=== PATIENT | male | born 1955 | race Caucasian/White ===

== ENCOUNTER 2024-11-06 17:14 | Observation (INO) ==
[2024-11-06] MEDS: OPTIRAY 320 125ml IV ONE (17:49)
[2024-11-06 17:54] LABS: Base Excess VBG 6.5 mEq/L; HCO3 VBG 32 mmol/L; Oxygen Saturation VBG 74.2 %; PCO2 VBG 47 mmHg (38-50); PO2 VBG 40 mmHg; pH VBG 7.44 (7.36-7.41)
[2024-11-06 17:56] LABS: Hematocrit (blood only) 43.7 % (42.0-52.0); Hemoglobin 15.5 g/dl (14.0-18.0); Immature Granulocytes # (auto) 0.02 K/uL (0.01-0.20); Immature Granulocytes % (auto) 0.3 %; Mean Corpuscular Hemoglobin 29.0 pg (25.0-34.0); Mean Corpuscular Volume 81.8 fL (80.0-100.0); Platelet Count 145 K/uL (130-400); RDW Standard Deviation 37.0 fL (36.4-46.3); Red Blood Count 5.34 M/uL (4.70-6.10); White Blood Count 7.11 K/ul (4.8-10.8)
[2024-11-06 18:13] LABS: Alanine Aminotransferase 13.0 U/L (7-52); Albumin Globulin Ratio 1.7 (0.9-2); Alkaline Phosphatase 42.0 U/L (34-104); Anion Gap 7.0 (3-11); Bilirubin,Total 0.5 mg/dl (0.2-1.0); Blood Urea Nitrogen 15.0 mg/dl (6-23); Calcium 8.8 mg/dl (8.6-10.3); Carbon Dioxide 31.0 mmol/L (21-32); Chloride 99.0 mmol/L (98-107); Creatinine Clr Calc Pharmacy 69.9 ml/min; Globulin 2.4 gm/dl (2.5-4.0); Glucose 133.0 mg/dl (70-99(Fasting)); Magnesium 2.0 mg/dl (1.7-2.4); Potassium 2.8 mmol/L (3.5-5.1); Sodium 137.0 mmol/L (136-145); Total Protein 6.5 gm/dl (6.0-8.3)
--- NOTE | 2024-11-06 18:15 | CT Scan Report ---
EXAMINATION: Head CT without CLINICAL HISTORY: TIA symptom PRIORS: None TECHNIQUE: Contiguous axial images were obtained through the head without the use of intravenous contrast. Sagittal and coronal reformations are supplied. FINDINGS: Mild diffuse parenchymal volume loss noted. Mcrae-white differentiation is preserved. No edema or midline shift. Physiologic calcifications of the basal ganglia noted. Scattered periventricular lucency present in the deep white matter likely representing small vessel occlusive disease. No intra-axial or extra-axial hemorrhage. Ventricles are normal in size and configuration. Brainstem and cerebellum have a normal appearance. Calvarium unremarkable. Paranasal sinuses and mastoid air cells are well-pneumatized. Globes are intact. No retrobulbar abnormality. IMPRESSION: No CT evidence of an acute intracranial abnormality. If clinical concern warrants, brain MRI could be obtained. Electronically signed by Elizabeth Churchill 11-06-2024 6:14 PM
--- NOTE | 2024-11-06 18:17 | CT Scan Report ---
EXAM: CTA head with CLINICAL HISTORY: TIA symptoms TECHNIQUE: Contiguous CTA axial images were obtained through the head after the administration of intravenous contrast. Sagittal and coronal reformations are supplied. PRIORS: None FINDINGS: The vertebral arteries form the basilar artery at the skull base. Left distal vertebral artery extremely diminutive in size at the level of the brainstem. [place] is patent. No thrombus or hemodynamically significant stenosis. No aneurysmal dilatation or shin aneurysm. No enhancing mass in the brain. IMPRESSION: No CTA evidence of an acute vascular abnormality. Electronically signed by Elizabeth Churchill 11-06-2024 6:14 PM
--- NOTE | 2024-11-06 18:17 | CT Scan Report ---
EXAM: CT angio neck with con CLINICAL HISTORY: TIA-like symptoms TECHNIQUE: Contiguous CTA axial images were obtained through the neck with the administration of intravenous contrast. Sagittal and coronal reformations are supplied. MIPS are supplied. COMPARISON: None FINDINGS: Left-sided aortic arch is identified with mild atherosclerotic disease. Appropriate takeoff of the 3 great vessels noted. The common, internal and external carotid arteries are patent with no significant atherosclerotic disease, hemodynamically significant stenosis, thrombus or evidence of dissection. The distal internal carotid arteries enter the petrous portion of the skull base normally. The vertebral arteries are patent with the right vertebral artery dominant. Both performed the basilar artery at the skull base. Internal carotid arteries are patent in the cavernous sinus with mild atherosclerotic disease identified. IMPRESSION: No CTA evidence of an acute abnormality or hemodynamically significant stenosis Electronically signed by Elizabeth Churchill 11-06-2024 6:17 PM
[2024-11-06 18:25] LABS: INR 1.0 (0.9-1.1); Partial Thromboplastin Time 27 Seconds (21-31); Prothrombin Time 10.9 Seconds (9.0-12.0)
[2024-11-06] MEDS: ASPIRIN 81 MG CHEW PO STA (18:39)
[2024-11-06] MEDS: POTASSIUM CHLORIDE 10 MEQ TABCR PO STA (18:41)
--- NOTE | 2024-11-06 19:06 | XRay Report ---
Chest radiograph, one view History: Stroke alert Comparison: None Findings: Single AP view of the chest performed. No focal consolidation or pleural effusion. No pneumothorax. The cardiomediastinal silhouette is within normal limits. Normal pulmonary vascularity. No evidence for lymphadenopathy. No visualized bony or soft tissue abnormality. Impression: Normal chest radiograph Electronically signed by Bigg Hodgson 11-06-2024 7:06 PM
--- NOTE | 2024-11-06 19:57 | Emergency Department Note ---
History of Present Illness General Chief complaint: TIA Symptoms Stated complaint: STROKE SYMTOMS Time Seen by Provider: 11/06/24 17:23 History of Present Illness Provider complaint: Headache strokelike symptoms 69-year-old male presents emergency department for headache and strokelike symptoms. Patient was driving and at 1330 developed a headache. At 1630 he developed expressive aphasia and dysarthria. Patient states his symptoms resolved 15 minutes later. Patient reports no current headache. No difficulty speaking right now. No numbness. No falls or traumas. No blood thinners. Home Medications Medication Instructions Recorded Confirmed Type hydrochlorothiazide 25 mg tablet 25 mg PO QAM 06/30/19 11/06/24 History simvastatin 20 mg tablet 20 mg PO HS 06/30/19 11/06/24 History amlodipine 5 mg tablet 5 mg PO QAM 11/06/24 11/06/24 History Allergies Allergy/AdvReac Type Severity Reaction Status Date / Time No Known Allergies Allergy Verified 11/06/24 18:30 Past Med/Surg History Problem List (Updated 11/06/24 @ 20:57 by Dario Farley MD) Brain TIA (Acute) Encounter for pre-operative examination Scrotal lesion Medical History Colon polyp Hyperlipidemia Hypertension Surgical History History of colonoscopy S/P vasectomy S/P cholecystectomy Family History Mother Diabetes Other No family history of adverse response to anesthesia Social History Smoking Status: Never smoker Second Hand Exposure: Yes (as a child); Do You Dip or Chew Tobacco: No; Hx Alcohol Use: No Hx Substance Use: No Preferred Language: Sinhala Communication Ability: Effective 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 Beliefs That Will Affect Care: None marital status: Current Living Situation: Spouse current occupational status: retired Feels Safe at Home: Yes Assistive Devices: Denture - Upper and Glasses Physical Exam Vital Signs Vital Signs - 24 hr 11/06/24 17:02 11/06/24 17:44 11/06/24 18:00 Temperature 36.9 C Temperature Source Oral Pulse Rate 80 80 Pulse Rate [Apical] 82 Respiratory Rate 18 14 Respiratory Effort / Characteristics Non-Labored Spontaneous Non-Labored Spontaneous Respiratory Depth Normal Normal Blood Pressure 164/89 H Blood Pressure [Left Arm] 135/81 Blood Pressure Mean 114 Blood Pressure Mean [Left Arm] 99 Pulse Oximetry 98 95 Oxygen Delivery Method Room Air Room Air Sepsis Recent Fever Within 48 Hours No Sepsis New/Unexplained Change in Mental Status No Sepsis Action Taken by Nursing No Action Required 11/06/24 19:00 11/06/24 19:45 11/06/24 20:00 Temperature Temperature Source Pulse Rate Pulse Rate [Apical] 70 72 65 Respiratory Rate 16 16 16 Respiratory Effort / Characteristics Respiratory Depth Blood Pressure Blood Pressure [Left Arm] 134/81 135/75 153/90 H Blood Pressure Mean Blood Pressure Mean [Left Arm] 98 95 111 Pulse Oximetry 97 96 Oxygen Delivery Method Room Air Room Air Room Air Sepsis Recent Fever Within 48 Hours Sepsis New/Unexplained Change in Mental Status Sepsis Action Taken by Nursing Physical Exam HENT: Exam performed. - Head: Normocephalic and atraumatic. EYES: Conjunctivae and EOM are normal. Right eye exhibits no discharge. Left eye exhibits no discharge. No scleral icterus. NECK: Normal range of motion. Neck supple. No JVD present. CV: Normal rate, regular rhythm, normal heart sounds and intact distal pulses. There is no peripheral edema. Palpable radial pulses bue. PULM/CHEST: Effort normal and breath sounds normal. No respiratory distress. No stridor. no wheezes. no rales. ABD: The abdomen is soft. There is no tenderness. NEURO: NIHSS: 0 Course Course 1723: The patient was evaluated in room B6. A complete history and physical exam was performed Cardiac monitoring: An order was placed for continuous cardiac monitoring. The monitor shows a rate of 70 with sinus rhythm interpreted by me 1837: Vital signs stable. Labs and imaging are unremarkable. Patient most likely had TIA. Patient treated with aspirin. Patient be admitted to the hospitalist team. Administered Medications Discontinued Medications Aspirin (Aspirin 81 Mg Chew) 324 mg PO NOW STA Stop: 11/06/24 18:32 Last Admin: 11/06/24 18:39 Dose: 324 mg Documented By: JERMAN Calcium Gluconate () 1,000 mg in 60 mls @ 240 mls/hr IV NOW STA Stop: 11/06/24 20:41 Last Admin: 11/06/24 20:36 Dose: 240 mls/hr Documented By: AN Ioversol (Optiray 320 125ml) 119 ml IV ONCE ONE Stop: 11/06/24 17:49 Last Admin: 11/06/24 17:49 Dose: 119 ml Documented By: EDK Potassium Chloride (Potassium Chloride 10 Meq Tabcr) 40 meq PO NOW STA Stop: 11/06/24 18:38 Last Admin: 11/06/24 18:41 Dose: 40 meq Documented By: JERMAN Potassium Chloride (Potassium Chloride Crtab 20 Meq Tabcr) 40 meq PO NOW STA Stop: 11/06/24 20:27 Last Admin: 11/06/24 20:36 Dose: 40 meq Documented By: AN Medical Decision Making Laboratory Data Attestation: I reviewed the patient's lab results. 11/06/24 16:55 11/06/24 16:55 Lab Results 11/06/24 11/06/24 11/06/24 Range/Units 16:55 17:28 17:30 WBC 7.11 (4.8-10.8) K/ul RBC 5.34 (4.70-6.10) M/uL Hgb 15.5 (14.0-18.0) g/dl POC Hgb (14.0-18.0) g/dl Hct 43.7 (42.0-52.0) % POC Hct (42-52) % MCV 81.8 (80.0-100.0) fL MCH 29.0 (25.0-34.0) pg MCHC 35.5 (32.0-36.0) g/dL RDW Std Deviation 37.0 (36.4-46.3) fL RDW Coeff of Hema 12.5 (11.5-14.5) % Plt Count 145 (130-400) K/uL MPV 11.6 (9.4-12.4) fL Immature Gran % (Auto) 0.3 % Neut % (Auto) 54.1 % Lymph % (Auto) 31.1 % Runnels % (Auto) 11.8 % Eos % (Auto) 2.1 % Baso % (Auto) 0.6 % Neut # (Auto) 3.85 (1.40-6.50) K/uL Lymph # (Auto) 2.21 (1.20-3.40) K/uL Runnels # (Auto) 0.84 H (0.11-0.59) K/uL Eos # (Auto) 0.15 (0.00-0.50) K/uL Baso # (Auto) 0.04 (0.00-0.20) K/uL Immature Gran # (Auto) 0.02 (0.01-0.20) K/uL PT 10.9 (9.0-12.0) Seconds INR 1.0 (0.9-1.1) APTT 27 (21-31) Seconds PTT Ratio 1.0 VBG pH 7.44 H (7.36-7.41) VBG pCO2 47 (38-50) mmHg VBG pO2 40 mmHg VBG HCO3 32 mmol/L VBG O2 Saturation 74.2 % VBG Base Excess 6.5 mEq/L Carboxyhemoglobin 2.0 % THgb POC Sodium (135-144) mmol/L Sodium 137 (136-145) mmol/L POC Potassium (3.3-5.0) mmol/L Potassium 2.8 L (3.5-5.1) mmol/L POC Chloride (101-112) mmol/L Chloride 99 (98-107) mmol/L Carbon Dioxide 31 (21-32) mmol/L POC Total CO2 (24-31) mmol/L Anion Gap 7 (3-11) POC Anion Gap (16-25) mmol/L POC BUN (7-18) mg/dl BUN 15 (6-23) mg/dl Creatinine 1.08 (0.6-1.4) mg/dl POC Creatinine (0.6-1.3) mg/dl Est Cr Clr Drug Dosing 69.9 ml/min eGFR 73.82 BUN/Creatinine Ratio 13.9 (10-20) Glucose 133 H (70-99(Fasting)) mg/dl POC Glucose 126 H (70-99) mg/dl POC Glucose (other) (70-99) mg/dl Calcium 8.8 (8.6-10.3) mg/dl POC Ioniz Calcium Matt (1.12-1.32) mmol/l Magnesium 2.0 (1.7-2.4) mg/dl Total Bilirubin 0.5 (0.2-1.0) mg/dl AST 16 (13-39) U/L ALT 13 (7-52) U/L Alkaline Phosphatase 42 (34-104) U/L Troponin I High Sens 3.6 (0-20) pg/ml Total Protein 6.5 (6.0-8.3) gm/dl Albumin 4.1 (3.4-5.0) gm/dl Globulin 2.4 L (2.5-4.0) gm/dl Albumin/Globulin Ratio 1.7 (0.9-2) Blood Type A Positive Antibody Screen NEGATIVE 11/06/24 Range/Units 17:34 WBC (4.8-10.8) K/ul RBC (4.70-6.10) M/uL Hgb (14.0-18.0) g/dl POC Hgb 14.3 (14.0-18.0) g/dl Hct (42.0-52.0) % POC Hct 42 (42-52) % MCV (80.0-100.0) fL MCH (25.0-34.0) pg MCHC (32.0-36.0) g/dL RDW Std Deviation (36.4-46.3) fL RDW Coeff of Hema (11.5-14.5) % Plt Count (130-400) K/uL MPV (9.4-12.4) fL Immature Gran % (Auto) % Neut % (Auto) % Lymph % (Auto) % Runnels % (Auto) % Eos % (Auto) % Baso % (Auto) % Neut # (Auto) (1.40-6.50) K/uL Lymph # (Auto) (1.20-3.40) K/uL R[place]els # (Auto) (0.11-0.59) K/uL Eos # (Auto) (0.00-0.50) K/uL Baso # (Auto) (0.00-0.20) K/uL Immature Gran # (Auto) (0.01-0.20) K/uL PT (9.0-12.0) Seconds INR (0.9-1.1) APTT (21-31) Seconds PTT Ratio VBG pH (7.36-7.41) VBG pCO2 (38-50) mmHg VBG pO2 mmHg VBG HCO3 mmol/L VBG O2 Saturation % VBG Base Excess mEq/L Carboxyhemoglobin % THgb POC Sodium 138 (135-144) mmol/L Sodium (136-145) mmol/L POC Potassium 2.8 L (3.3-5.0) mmol/L Potassium (3.5-5.1) mmol/L POC Chloride 96 L (101-112) mmol/L Chloride (98-107) mmol/L Carbon Dioxide (21-32) mmol/L POC Total CO2 27 (24-31) mmol/L Anion Gap (3-11) POC Anion Gap 18.0 (16-25) mmol/L POC BUN 14 (7-18) mg/dl BUN (6-23) mg/dl Creatinine (0.6-1.4) mg/dl POC Creatinine 1.2 (0.6-1.3) mg/dl Est Cr Clr Drug Dosing ml/min eGFR BUN/Creatinine Ratio (10-20) Glucose (70-99(Fasting)) mg/dl POC Glucose (70-99) mg/dl POC Glucose (other) 127 H (70-99) mg/dl Calcium (8.6-10.3) mg/dl POC Ioniz Calcium Matt 1.07 L (1.12-1.32) mmol/l Magnesium (1.7-2.4) mg/dl Total Bilirubin (0.2-1.0) mg/dl AST (13-39) U/L ALT (7-52) U/L Alkaline Phosphatase (34-104) U/L Troponin I High Sens (0-20) pg/ml Total Protein (6.0-8.3) gm/dl Albumin (3.4-5.0) gm/dl Globulin (2.5-4.0) gm/dl Albumin/Globulin Ratio (0.9-2) Blood Type Antibody Screen Imaging Data Attestation: I personally reviewed and interpreted this imaging study as follows: My Impression: Chest x-ray negative. Airway clear. No pneumothorax. No consolidation. No cardiomegaly or cephalization.. No free air under the diaphragm. No fractures of the skeletal structures. Radiologist's Impression: Chest X-Ray 11/06/24 17:23 Chest radiograph, one view History: Stroke alert Comparison: None Findings: Single AP view of the chest performed. No focal consolidation or pleural effusion. No pneumothorax. The cardiomediastinal silhouette is within normal limits. Normal pulmonary vascularity. No evidence for lymphadenopathy. No visualized bony or soft tissue abnormality. Impression: Normal chest radiograph Electronically signed by Bigg Hodgson 11-06-2024 7:[address] 11/06/24 17:23 EXAMINATION: Head CT without CLINICAL HISTORY: TIA symptom PRIORS: None TECHNIQUE: Contiguous axial images were obtained through the head without the use of intravenous contrast. Sagittal and coronal reformations are supplied. FINDINGS: Mild diffuse parenchymal volume loss noted. Mcrae-white differentiation is preserved. No edema or midline shift. Physiologic calcifications of the basal ganglia noted. Scattered periventricular lucency present in the deep white matter likely representing small vessel occlusive disease. No intra-axial or extra-axial hemorrhage. Ventricles are normal in size and configuration. Brainstem and cerebellum have a normal appearance. Calvarium unremarkable. Paranasal sinuses and mastoid air cells are well-pneumatized. Globes are intact. No retrobulbar abnormality. IMPRESSION: No CT evidence of an acute intracranial abnormality. If clinical concern warrants, brain MRI could be obtained. Electronically signed by Elizabeth Churchill 11-06-2024 6:14 PM Head CTA 11/06/24 17:23 EXAM: CTA head with CLINICAL HISTORY: TIA symptoms TECHNIQUE: Contiguous CTA axial images were obtained through the head after the administration of intravenous contrast. Sagittal and coronal reformations are supplied. PRIORS: None FINDINGS: The vertebral arteries form the basilar artery at the skull base. Left distal vertebral artery extremely diminutive in size at the level of the brainstem. [place] of [place] is patent. No thrombus or hemodynamically significant stenosis. No aneurysmal dilatation or shin aneurysm. No enhancing mass in the brain. IMPRESSION: No CTA evidence of an acute vascular abnormality. Electronically signed by Elizabeth Churchill 11-06-2024 6:14 PM Neck CTA 11/06/24 17:23 EXAM: CT angio neck with con CLINICAL HISTORY: TIA-like symptoms TECHNIQUE: Contiguous CTA axial images were obtained through the neck with the administration of intravenous contrast. Sagittal and coronal reformations are supplied. MIPS are supplied. COMPARISON: None FINDINGS: Left-sided aortic arch is identified with mild atherosclerotic disease. Appropriate takeoff of the 3 great vessels noted. The common, internal and external carotid arteries are patent with no significant atherosclerotic disease, hemodynamically significant stenosis, thrombus or evidence of dissection. The distal internal carotid arteries enter the petrous portion of the skull base normally. The vertebral arteries are patent with the right vertebral artery dominant. Both performed the basilar artery at the skull base. Internal carotid arteries are patent in the cavernous sinus with mild atherosclerotic disease identified. IMPRESSION: No CTA evidence of an acute abnormality or hemodynamically significant stenosis Electronically signed by Elizabeth Churchill 11-06-2024 6:17 PM ECG Data Attestation: I personally reviewed and interpreted this ECG as follows: Rate (beats per minute): 76 Rhythm: + normal sinus ECG Intervals/blocks: + Normal QRS, + Normal MT and + Normal QT-c ECG ST segments: + Normal ST segments [facility] Narrative 1723: The patient was evaluated in room B6. A complete history and physical exam was performed Cardiac monitoring: An order was placed for continuous cardiac monitoring. The monitor shows a rate of 70 with sinus rhythm interpreted by me 1837: Vital signs stable. Labs and imaging are unremarkable. Patient most likely had TIA. Patient treated with aspirin. Patient be admitted to the hospitalist team. Impression & Plan Brain TIA Discharge Plan Visit Data Chief Complaint: TIA Symptoms Stated Complaint: STROKE SYMTOMS ED Provider: Dario Farley Discharge Problem: Brain TIA Patient Disposition: Admitted As Inpatient Condition: Fair Forms Stand Alone Forms: My [facility] Prescriptions Prescriptions: No Action simvastatin 20 mg tablet 20 mg PO HS hydrochlorothiazide 25 mg tablet 25 mg PO QAM amlodipine 5 mg tablet 5 mg PO QAM Referrals Referrals: Saritha Hernandez DO [Primary Care Provider] -
--- NOTE | 2024-11-06 20:08 | History & Physical Report ---
Date of Service November 06, 2024 Assessment & Plan (1) Brain TIA: (2) Hypertension: (3) Hyperlipidemia: Plan 69yo male with history of HTN, HLP presenting with transient aphasia and right sided facial droop that occurred earlier today around 16:40. Symptoms lasted approximately 20 minutes and have resolved to completion. Imaging as above, no stroke present. #Brain TIA - ABCD2 Score=4 (Age>60, BP > 140/90, Speech disturbance x 20 minutes) -Observation to medical with telemetry -MRI as above -Check 2D echo with bubble -Check lipid panel and A1C -Increase Simvastatin to 40mg daily -Will initiate DAPT with ASA 81mg po daily and Plavix 75mg po daily for high risk TIA (ABCD2 Score=4). Continue DAPT x 21 days then to single anti-platelet agent #Hypertension -Continue Amlodipine 5mg po qAM -Will hold HCTZ for now until K is repleted #Hyperlipidemia -Increase Simvastatin to 40mg po daily #Hypokalemia - K=2.8 -80mEq administered -Repeat BMP in AM and provide additional supplementation as needed History of Present Illness Chief Complaint: aphasia Primary Care Provider: DO Johnathan Rueda Roshan is a pleasant 69yo male with history of HTN, HLP presenting after an episode of aphasia. Patient had a headache earlier this afternoon which is not typical for him. He took some Tylenol with relief. Later in the day around 16:40 he was [address] with family and developed acute episode of aphasia. He k new what he wanted to say but was unable to say the correct words. His states that he was saying things that didn't make sense. He also had a right facial droop otherwise no other neurologic findings. Symptoms lasted approximately 20 minutes then resolved completely. Patient states that he feels nearly baseline presently. No additional complaints. No headache, focal numbness/tingling/weakness, chest pain, palpitations, dizziness, SOB. ER Course: KCl 80mEq ASA Calcium gluconate 1000mg Simvastatin 40mg Allergies Allergy/AdvReac Type Severity Reaction Status Date / Time No Known Allergies Allergy Verified 11/06/24 18:30 Home Medications Medication Instructions Recorded Confirmed Type hydrochlorothiazide 25 mg tablet 25 mg PO QAM 06/30/19 11/06/24 History simvastatin 20 mg tablet 20 mg PO HS 06/30/19 11/06/24 History amlodipine 5 mg tablet 5 mg PO QAM 11/06/24 11/06/24 History Past Med/Surg History Problem List Brain TIA (Acute) Encounter for pre-operative examination Scrotal lesion Medical History Colon polyp Hyperlipidemia Hypertension Surgical History History of colonoscopy S/P vasectomy S/P cholecystectomy Family History Mother Diabetes Other No family history of adverse response to anesthesia Social History Smoking Status: Never smoker Second Hand Exposure: Yes (as a child); Do You Dip or Chew Tobacco: No; Hx Alcohol Use: No Hx Substance Use: No Preferred Language: German Communication Ability: Effective Direct Service Professional Required: No Beliefs That Will Affect Care: None marital status: Current Living Situation: Spouse current occupational status: retired Feels Safe at Home: Yes Safety Concerns: Feels Safe At This Time Assistive Devices: Denture - Upper and Glasses Review of Systems Review of Systems: All systems reviewed & are unremarkable except as noted in HPI & below Physical Exam Physical Exam: General: patient resting comfortably, NAD, non-toxic in appearance, AA&O x 4 Skin: warm, dry, intact, no rashes or lesions HEENT: NC/AT, PERRL, EOMI, anicteric sclera, conjunctiva without injection, external ear normal to inspection and nontender, nares patent, moist mucus membranes, dentition intact, no oropharyngeal lesions, neck supple, trachea midline, no LAD, no thyromegaly, no JVD Heart: +S1/S2, regular, no m/r/g Lungs: equal air entry bilaterally, no rales/rhonchi/wheezes Abd: +BS, soft, NT/ND, no masses/organomegaly/ascites Ext: warm, 2+ pulses in UE/LE bilaterally, no clubbing/cyanosis or edema Neuro: nonfocal, patient AA&O x 4, speech intact, no facial droop, moving all extremities on command with equal strength 5/5 Results & Data Results & Data Vital Signs (Past 12 Hours) Vital Signs Temp Pulse Pulse Resp BP BP Pulse Ox 11/06/24 19:45 72 16 135/75 11/06/24 19:00 70 16 134/81 97 11/06/24 18:00 82 14 135/81 95 11/06/24 17:44 80 11/06/24 17:02 36.9 C 80 18 164/89 H 98 O2 Del Method 11/06/24 19:45 Room Air 11/06/24 19:00 Room Air 11/06/24 18:00 Room Air 11/06/24 17:44 11/06/24 17:02 Room Air Laboratory Results Laboratory Results WBC 7.11 K/ul (4.8-10.8) 11/06/24 16:55 RBC 5.34 M/uL (4.70-6.10) 11/06/24 16:55 Hgb 15.5 g/dl (14.0-18.0) 11/06/24 16:55 POC Hgb 14.3 g/dl (14.0-18.0) 11/06/24 17:34 Hct 43.7 % (42.0-52.0) 11/06/24 16:55 POC Hct 42 % (42-52) 11/06/24 17:34 MCV 81.8 fL (80.0-100.0) 11/06/24 16:55 MCH 29.0 pg (25.0-34.0) 11/06/24 16:55 MCHC 35.5 g/dL (32.0-36.0) 11/06/24 16:55 RDW Std Deviation 37.0 fL (36.4-46.3) 11/06/24 16:55 RDW Coeff of Hema 12.5 % (11.5-14.5) 11/06/24 16:55 Plt Count 145 K/uL (130-400) 11/06/24 16:55 MPV 11.6 fL (9.4-12.4) 11/06/24 16:55 Immature Gran % (Auto) 0.3 % 11/06/24 16:55 Neut % (Auto) 54.1 % 11/06/24 16:55 Lymph % (Auto) 31.1 % 11/06/24 16:55 [place] % (Auto) 11.8 % 11/06/24 16:55 Eos % (Auto) 2.1 % 11/06/24 16:55 Baso % (Auto) 0.6 % 11/06/24 16:55 Neut # (Auto) 3.85 K/uL (1.40-6.50) 11/06/24 16:55 Lymph # (Auto) 2.21 K/uL (1.20-3.40) 11/06/24 16:55 [place] # (Auto) 0.84 K/uL (0.11-0.59) H 11/06/24 16:55 Eos # (Auto) 0.15 K/uL (0.00-0.50) 11/06/24 16:55 Baso # (Auto) 0.04 K/uL (0.00-0.20) 11/06/24 16:55 Immature Gran # (Auto) 0.02 K/uL (0.01-0.20) 11/06/24 16:55 PT 10.9 Seconds (9.0-12.0) 11/06/24 16:55 INR 1.0 (0.9-1.1) 11/06/24 16:55 APTT 27 Seconds (21-31) 11/06/24 16:55 PTT Ratio 1.0 11/06/24 16:55 VBG pH 7.44 (7.36-7.41) H 11/06/24 17:30 VBG pCO2 47 mmHg (38-50) 11/06/24 17:30 VBG pO2 40 mmHg 11/06/24 17:30 VBG HCO3 32 mmol/L 11/06/24 17:30 VBG O2 Saturation 74.2 % 11/06/24 17:30 VBG Base Excess 6.5 mEq/L 11/06/24 17:30 Carboxyhemoglobin 2.0 % THgb 11/06/24 17:30 POC Sodium 138 mmol/L (135-144) 11/06/24 17:34 Sodium 137 mmol/L (136-145) 11/06/24 16:55 POC Potassium 2.8 mmol/L (3.3-5.0) L 11/06/24 17:34 Potassium 2.8 mmol/L (3.5-5.1) L 11/06/24 16:55 POC Chloride 96 mmol/L (101-112) L 11/06/24 17:34 Chloride 99 mmol/L (98-107) 11/06/24 16:55 Carbon Dioxide 31 mmol/L (21-32) 11/06/24 16:55 POC Total CO2 27 mmol/L (24-31) 11/06/24 17:34 Anion Gap 7 (3-11) 11/06/24 16:55 POC Anion Gap 18.0 mmol/L (16-25) 11/06/24 17:34 POC BUN 14 mg/dl (7-18) 11/06/24 17:34 BUN 15 mg/dl (6-23) 11/06/24 16:55 Creatinine 1.08 mg/dl (0.6-1.4) 11/06/24 16:55 POC Creatinine 1.2 mg/dl (0.6-1.3) 11/06/24 17:34 Est Cr Clr Drug Dosing 69.9 ml/min 11/06/24 16:55 eGFR 73.82 11/06/24 16:55 BUN/Creatinine Ratio 13.9 (10-20) 11/06/24 16:55 Glucose 133 mg/dl (70-99(Fasting)) H 11/06/24 16:55 POC Glucose 126 mg/dl (70-99) H 11/06/24 17:28 POC Glucose (other) 127 mg/dl (70-99) H 11/06/24 17:34 Calcium 8.8 mg/dl (8.6-10.3) 11/06/24 16:55 POC Ioniz Calcium Matt 1.07 mmol/l (1.12-1.32) L 11/06/24 17:34 Magnesium 2.0 mg/dl (1.7-2.4) 11/06/24 16:55 Total Bilirubin 0.5 mg/dl (0.2-1.0) 11/06/24 16:55 AST 16 U/L (13-39) 11/06/24 16:55 ALT 13 U/L (7-52) 11/06/24 16:55 Alkaline Phosphatase 42 U/L (34-104) 11/06/24 16:55 Troponin I High Sens 3.6 pg/ml (0-20) 11/06/24 16:55 Total Protein 6.5 gm/dl (6.0-8.3) 11/06/24 16:55 Albumin 4.1 gm/dl (3.4-5.0) 11/06/24 16:55 Globulin 2.4 gm/dl (2.5-4.0) L 11/06/24 16:55 Albumin/Globulin Ratio 1.7 (0.9-2) 11/06/24 16:55 Urine Color Yellow 11/07/24 00:45 Urine Appearance Clear (Clear) 11/07/24 00:45 Urine pH 7.0 (4.5-7.5) 11/07/24 00:45 Ur Specific [place] 1.020 (1.000-1.030) 11/07/24 00:45 Urine Protein Negative (Negative) 11/07/24 00:45 Urine Glucose (UA) Negative (Negative) 11/07/24 00:45 Urine Ketones Negative (Negative) 11/07/24 00:45 Urine Blood Negative (Negative) 11/07/24 00:45 Urine Nitrite Negative (Negative) 11/07/24 00:45 Urine Bilirubin Negative (Negative) 11/07/24 00:45 Urine Urobilinogen Negative (Negative) 11/07/24 00:45 Ur Leukocyte Esterase Negative (Negative) 11/07/24 00:45 Urine Comment 11/07/24 00:45 Blood Type A Positive 11/06/24 17:30 Antibody Screen NEGATIVE 11/06/24 17:30 Impressions Chest X-Ray 11/06/24 17:23 Chest radiograph, one view History: Stroke alert Comparison: None Findings: Single AP view of the chest performed. No focal consolidation or pleural effusion. No pneumothorax. The cardiomediastinal silhouette is within normal limits. Normal pulmonary vascularity. No evidence for lymphadenopathy. No visualized bony or soft tissue abnormality. Impression: Normal chest radiograph Electronically signed by Bigg Hodgson 11-06-2024 7:[address] 11/06/24 17:23 EXAMINATION: Head CT without CLINICAL HISTORY: TIA symptom PRIORS: None TECHNIQUE: Contiguous axial images were obtained through the head without the use of intravenous contrast. Sagittal and coronal reformations are supplied. FINDINGS: Mild diffuse parenchymal volume loss noted. Mcrae-white differentiation is preserved. No edema or midline shift. Physiologic calcifications of the basal ganglia noted. Scattered periventricular lucency present in the deep white matter likely representing small vessel occlusive disease. No intra-axial or extra-axial hemorrhage. Ventricles are normal in size and configuration. Brainstem and cerebellum have a normal appearance. Calvarium unremarkable. Paranasal sinuses and mastoid air cells are well-pneumatized. Globes are intact. No retrobulbar abnormality. IMPRESSION: No CT evidence of an acute intracranial abnormality. If clinical concern warrants, brain MRI could be obtained. Electronically signed by Elizabeth Churchill 11-06-2024 6:14 PM Head CTA 11/06/24 17:23 EXAM: CTA head with CLINICAL HISTORY: TIA symptoms TECHNIQUE: Contiguous CTA axial images were obtained through the head after the administration of intravenous contrast. Sagittal and coronal reformations are supplied. PRIORS: None FINDINGS: The vertebral arteries form the basilar artery at the skull base. Left distal vertebral artery extremely diminutive in size at the level of the brainstem. [place] of [place] is patent. No thrombus or hemodynamically significant stenosis. No aneurysmal dilatation or shin aneurysm. No enhancing mass in the brain. IMPRESSION: No CTA evidence of an acute vascular abnormality. Electronically signed by Elizabeth Churchill 11-06-2024 6:14 PM Neck CTA 11/06/24 17:23 EXAM: CT angio neck with con CLINICAL HISTORY: TIA-like symptoms TECHNIQUE: Contiguous CTA axial images were obtained through the neck with the administration of intravenous contrast. Sagittal and coronal reformations are supplied. MIPS are supplied. COMPARISON: None FINDINGS: Left-sided aortic arch is identified with mild atherosclerotic disease. Appropriate takeoff of the 3 great vessels noted. The common, internal and external carotid arteries are patent with no significant atherosclerotic disease, hemodynamically significant stenosis, thrombus or evidence of dissection. The distal internal carotid arteries enter the petrous portion of the skull base normally. The vertebral arteries are patent with the right vertebral artery dominant. Both performed the basilar artery at the skull base. Internal carotid arteries are patent in the cavernous sinus with mild atherosclerotic disease identified. IMPRESSION: No CTA evidence of an acute abnormality or hemodynamically significant stenosis Electronically signed by Elizabeth Churchill 11-06-2024 6:17 PM ========= Brain MRI 11/06/24 21:42 EXAM: MR brain wo/w con CLINICAL HISTORY: TIA vs CVA TECHNIQUE: Multisequential and multiplanar images of the brain were submitted for review without and with contrast. COMPARISON: none FINDINGS: Generalized parenchymal atrophy is appreciated. Scattered foci of increased T2/FLAIR signal abnormality are identified within the bilateral periventricular and subcortical white matter, and are most commonly associated with chronic small vessel ischemic disease. No focal parenchymal lesions are seen. No pathological enhancement is noted on the postcontrast sequences. No intracranial hemorrhage, mass effect, midline shift, extra-axial collection, or hydrocephalus is identified. Ventricles, sulci, and basal cisterns are symmetric and normal in size and configuration. Diffusion-weighted sequences show no evidence of acute ischemic infarction. Midline structures including the pituitary gland, corpus callosum, pineal region, and brainstem are unremarkable. The craniovertebral junction is within normal limits. No calvarial abnormalities are identified. The paranasal sinuses and mastoid air cells are clear. Orbital structures are unremarkable. Appropriate flow voids are present in the visualized intracranial vessels. IMPRESSION: 1. No acute ischemia, space occupying mass, or other acute intracranial pathology is demonstrated. 2. Chronic small vessel ischemic disease. 3. Diffuse cerebral atrophy. Electronically signed by Jluio Laureano 11-07-2024 02:06 AM ECG Additional Comments: EKG per my interpretation with NSR at 76bpm, normal axis, LN=357, QRS=96, IJk=654, poor R wave progression, possible septal infarct, no acute findings PG Care Time/CCT Total # of Minutes Spent Total Time Spent with Patient: Total time spent is greater than 50% in coordination of care (as documented) at patient's floor/unit and/or counseling patient: Coding Level of Care Code 17019 INT INP/OBS CARE 3/75MIN Diagnoses Brain TIA G45.9 Hypertension I10 Hyperlipidemia E78.5
[2024-11-06] MEDS: POTASSIUM CHLORIDE CRTAB 20 MEQ TABCR PO STA (20:36)
[2024-11-06] MEDS: CALCIUM GLUCONATE 1,000 MG/60 ML BAG IV STA (20:36)
[2024-11-06] MEDS ORDERED: ONDANSETRON INJ 2 MG/ML 2 ML VIAL IV PRN (21:42)
[2024-11-06] MEDS ORDERED: ACETAMINOPHEN 325 MG TAB PO PRN (21:42)
[2024-11-06] MEDS ORDERED: PHARMACIST DISCHARGE MED REC CONSULT PRN (21:42)
[2024-11-06] MEDS ORDERED: POLYETHYLENE (MIRALAX) 17 GM PACK PO PRN (21:42)
[2024-11-06] MEDS ORDERED: DOCUSATE SODIUM 100 MG CAP PO PRN (21:42)
[2024-11-06] MEDS: SIMVASTATIN 40 MG TAB PO SCH (22:15)
[2024-11-07 01:12] LABS: Appearance Urine Clear (Clear); Glucose Urine UA Negative (Negative)
[2024-11-07] MEDS: GADOBUTROL 65ML VIAL IV ONE (01:33)
--- NOTE | 2024-11-07 02:07 | Magnetic Resonance Report ---
EXAM: MR brain wo/w con CLINICAL HISTORY: TIA vs CVA TECHNIQUE: Multisequential and multiplanar images of the brain were submitted for review without and with contrast. COMPARISON: none FINDINGS: Generalized parenchymal atrophy is appreciated. Scattered foci of increased T2/FLAIR signal abnormality are identified within the bilateral periventricular and subcortical white matter, and are most commonly associated with chronic small vessel ischemic disease. No focal parenchymal lesions are seen. No pathological enhancement is noted on the postcontrast sequences. No intracranial hemorrhage, mass effect, midline shift, extra-axial collection, or hydrocephalus is identified. Ventricles, sulci, and basal cisterns are symmetric and normal in size and configuration. Diffusion-weighted sequences show no evidence of acute ischemic infarction. Midline structures including the pituitary gland, corpus callosum, pineal region, and brainstem are unremarkable. The craniovertebral junction is within normal limits. No calvarial abnormalities are identified. The paranasal sinuses and mastoid air cells are clear. Orbital structures are unremarkable. Appropriate flow voids are present in the visualized intracranial vessels. IMPRESSION: 1. No acute ischemia, space occupying mass, or other acute intracranial pathology is demonstrated. 2. Chronic small vessel ischemic disease. 3. Diffuse cerebral atrophy. Electronically signed by Julio Laureano 11-07-2024 02:06 AM
[2024-11-07 07:08] VITALS: RESP 20
[2024-11-07] MEDS: CLOPIDOGREL BISULFATE 75 MG TAB PO SCH (07:25)
[2024-11-07] MEDS: ASPIRIN 81 MG ECTAB PO SCH (07:25)
[2024-11-07 07:40] LABS: Anion Gap 5.0 (3-11); Blood Urea Nitrogen 11.0 mg/dl (6-23); Calcium 8.6 mg/dl (8.6-10.3); Carbon Dioxide 32.0 mmol/L (21-32); Chloride 104.0 mmol/L (98-107); Cholesterol 155.0 mg/dl (0-200); Creatinine Clr Calc Pharmacy 80.3 ml/min; Glucose 117.0 mg/dl (70-99(Fasting)); HDL Cholesterol 43.0 mg/dl; Potassium 3.6 mmol/L (3.5-5.1); Sodium 141.0 mmol/L (136-145); Triglycerides 88.0 mg/dl (0-150)
[2024-11-07 08:09] LABS: Hemoglobin A1C 6.3 % (4.5-5.6)
--- NOTE | 2024-11-07 09:57 | Discharge Summary ---
Discharge Summary Date of Service November 07, 2024 Principal Dx & Hospital Course #1 = Principal Diagnosis (1) Brain TIA: (2) Hypertension: (3) Hyperlipidemia: Plan This patient is a 69yo male with history of HTN, HLP presenting with transient aphasia and right sided facial droop that occurred on 11/06 around 16:40. Symptoms lasted approximately 20 minutes and have resolved to completion. Imaging as below, no stroke present. Day of discharge 11/07: Patient is doing well this morning. He has had no recurrence of expressive aphasia, and does not have any residual symptoms from his event. He reports that he slept well last night, and is eating and drinking well this morning. He denies any prior episodes of expressive aphasia in the past. He believes the entire episode lasted 10 to 15 minutes, while patient was driving down the highway, but the time he got to his grandson's house, his symptoms had largely resolved. However, he does report his daughter noticed a "facial droop", but he was unsure if this was present. No prior history of stroke/CVA. No history of atrial fibrillation. Patient denies any chest palpitations. No sick contacts. No prior history of GI bleeds, or reasons he could be on antiplatelets. Patient was previously on aspirin 81 mg for years for primary prevention, but then was taken off aspirin 2 years ago; he is not sure why, but believes that it was due to a something his PCP said about changes in the literature for primary prevention. Patient did have headache yesterday afternoon, but this went away after taking Tylenol. No recurrence of headache. ROS: Patient endorses word finding difficulty (resolved). Patient denies fever, chills, unilateral deficits, headache, changes in vision (blurry vision, double vision, photophobia), facial droop, slurred speech, neck pain, chest pain, chest palpitations, SOB, cough, pleuritic CP, abdominal pain, N/V/D, changes in urinary or bowel habits, blood in the urine or stool, burning with urination, or numbness or tingling in arms or legs. #Brain TIA - ABCD2 Score=4 (Age>60, BP > 140/90, Speech disturbance x 20 minutes) Head CT without acute intracranial abnormalities Head/neck CTA without acute abnormalities Brain MRI revealed no acute ischemia, space-occupying mass, or acute intracranial pathology Echocardiogram with bubble study ordered, pending A1c 6.3% on 11/07/2024 Simvastatin 40 mg p.o. HS Initiated DAPT while in the hospital Continue with ASA 81mg po daily and Plavix 75mg po daily for high risk TIA (ABCD2 Score=4) x 21 days before transitioning to a single antiplatelet agent #Hypertension Continue Amlodipine 5mg p.o. qAM HCTZ was held until K was repleted; okay to resume HCTZ on discharge #Hyperlipidemia Simvastatin was increased to 40mg p.o. daily A.m. fasting lipid panel looked okay: Total cholesterol 155 LDL <100 Resume regular dosage of simvastatin 20 mg daily upon discharge #Hypokalemia (resolved) K=2.8 on arrival 80mEq administered Now within normal range at 3.6 on the morning discharge We will plan to send patient home on potassium chloride supplementation 10 mEq daily Repeat BMP in 1 to 2 weeks prior to PCP appointment Disposition: Discharge home Notes For Next Care Provider Patient with suspected 10 to 15-minute TIA event prior to hospitalization; no recurrence of symptoms in the hospital. Initiated DAPT with aspirin 81 mg daily and Plavix 75 mg daily x 21 days; can likely transition to antiplatelet monotherapy after that Patient is potassium is also low at 2.8 on arrival; currently 3.6 at time of discharge. Will plan to resume patient's HCTZ on discharge, but add on potassium chloride 10mEq daily. Patient instructed to have blood work drawn assessing his BMP prior to transitional care appointment. Admission HPI Per Admitting Provider Johnathan Islas is a pleasant 69yo male with history of HTN, HLP presenting after an episode of aphasia. Patient had a headache earlier this afternoon which is not typical for him. He took some Tylenol with relief. Later in the day around 16:[address] was [address] with family and developed acute episode of aphasia. He knew what he wanted to say but was unable to say the correct words. His states that he was saying things that didn't make sense. He also had a right facial droop otherwise no other neurologic findings. Symptoms lasted approximately 20 minutes then resolved completely. Patient states that he feels nearly baseline presently. No additional complaints. No headache, focal numbness/tingling/weakness, chest pain, palpitations, dizziness, SOB. ER Course: KCl 80mEq ASA Calcium gluconate 1000mg Simvastatin 40mg Admission Exam Per Admitting Provider General: patient resting comfortably, NAD, non-toxic in appearance, AA&O x 4 Skin: warm, dry, intact, no rashes or lesions HEENT: NC/AT, PERRL, EOMI, anicteric sclera, conjunctiva without injection, external ear normal to inspection and nontender, nares patent, moist mucus membranes, dentition intact, no oropharyngeal lesions, neck supple, trachea midline, no LAD, no thyromegaly, no JVD Heart: +S1/S2, regular, no m/r/g Lungs: equal air entry bilaterally, no rales/rhonchi/wheezes Abd: +BS, soft, NT/ND, no masses/organomegaly/ascites Ext: warm, 2+ pulses in UE/LE bilaterally, no clubbing/cyanosis or edema Neuro: nonfocal, patient AA&O x 4, speech intact, no facial droop, moving all extremities on command with equal strength 5/5 Discharge Exam General: no acute distress; pleasant affect; patient able to transfer from chair to bed without any difficulty; non-toxic appearing; well-nourished; cooperative; SpO2 97% on RA HEENT: normocephalic, atraumatic; no scleral icterus; PERRLA w/ EOMs intact; vision and hearing grossly intact; patient demonstrates both to smile, frown, and lift eyebrows without unilateral deficits Neck: supple; trachea midline Skin: warm, dry without signs of tenting; no cyanosis; no rashes, bruising, lesions, or erythema noted CV: chest wall NTP; RRR; S1/S2 normal; no murmurs/rubs/gallops; pulses intact and symmetric at radial, DP, and PT Lungs: no acute respiratory distress; symmetrical chest wall expansion; clear breath sounds across all lung osorio w/o adventitious sounds; no wheezing ABD: Soft, NTP; BS present; no rebound/guarding; no distention MSK: no tics or fasciculations; no edema noted in the LEs b/l, nonerythematous; 5/5 customer service agent strength bilaterally; patient demonstrates ability to lift legs from the bed bilaterally with 5/5 strength; no unilateral deficits appreciated Neuro: A&Ox3; normal mood and affect; no slurred speech, fluent speech; no facial droop; no focal deficits appreciated; patient report sensation is intact and symmetric in face, upper extremities, and lower EXTR bilaterally Discharge Plan Discharge Items Patient Disposition: Home - Self-Care Reason For Visit: POSSIBLE TIA VS CVA Discharge Diagnosis: TIA Condition on Discharge: Fair Activity: Resume your previous activity Non-emergency contact: Primary Care Provider Call non-emergency contact if: you have any medication questions, your symptoms worsen and you have a fever Follow-up/Referrals: Saritha Hernandez DO [Primary Care Provider] - 11/14/24 1:25 pm Diet: Heart Healthy Addtl Attending Provider Instructions: You were hospitalized at [facility] from 11/06 - 11/07 after an acute episode of word finding difficulty. You reported that this episode lasted for approximately 10 to 15 minutes, then resolved on its own. The initial imaging of your head and neck revealed no acute intracranial findings (i.e. no stroke). However your clinical picture is concerning for something called a transient ischemic attack (or "mini stroke"). These events do not lead to any permanent damage or loss of brain function; however, it is very important to prevent events like this from recurring. We are planning to discharge you on dual antiplatelet therapy: - Take aspirin 81 mg daily x 21 days - Take Plavix 75 mg daily x 21 days After completing this 3-week course, it is likely that you will need to remain on antiplatelet monotherapy to prevent an event like this from recurring. Please plan to follow-up with your PCP in the next 1 to 2 weeks for transitional care. We are also planning to send you home on a new prescription for potassium supplements 10 mEq daily. Prior to your PCP appointment, please plan to have blood work drawn to assess your potassium level (the lab test is called a "BMP"). Your potassium level was somewhat low when you arrived in the hospital, but is back within normal limits at time of discharge. It is possible that one of the medications you take daily, called hydrochlorothiazide, could be gradually decreasing your potassium levels. It is okay to resume this medication upon discharge, but we would want to closely monitor your potassium levels moving forward. If you develop any new or worsening symptoms, such as slurred speech, facial droop, unilateral deficits, fainting spells, dizziness, chest pain, difficulty walking, or difficulty breathing, please return to the emergency department immediately. It was a pleasure taking care of you. Please reach out with any questions or concerns. Sincerely, The Hospital medicine team at [facility] Pending Studies at Discharge: No Stand-Alone Forms: My [facility], Medications to Prevent Stroke Medications and DC Order Prescriptions: New aspirin 81 mg Tablet,Delayed Release (Dr/Ec) 81 mg PO DAILY Qty: 21 0RF Rx Instructions: Take 1 tablet by mouth daily clopidogrel [Plavix] 75 mg tablet 75 mg PO DAILY Qty: 21 0RF Rx Instructions: Take 1 tablet by mouth daily potassium chloride 10 mEq capsule, extended release 10 meq PO DAILY Qty: 30 0RF Rx Instructions: Take 1 tablet by mouth daily Continued simvastatin 20 mg tablet 20 mg PO HS hydrochlorothiazide 25 mg tablet 25 mg PO QAM amlodipine 5 mg tablet 5 mg PO QAM Discharge Orders: Discharge Order (Routine); Ordered 11/07/24 Ordered By: Calixto Freedman/Other Patient Handouts: Prediabetes, What Is a TIA?, 5 Steps for Eating Healthier, TIA Dc Admission Data Admit Date/Time: 11/06/24 20:07 Attending Provider: Andrae Mcmahon Admit Provider: Jodi De Jesus Primary Care Provider: Saritha Hernandez Other Providers: [place] Other Interventions: Discharge Summary Assessment (RN) Last Done: 11/07/24 11:16 Hospital Stay Data Consultations 11/06/24 18:37 ED Decision to Admit Stat Diagnostic Imagining Performed 11/06/24 17:23 CT angio head w con Stat CT angio neck with con Stat CT head/brain wo con Stat 11/06/24 21:42 MR brain wo/w con Routine Discharge Instructions Given to Patient (Per Discharging Provider) You were hospitalized at [facility] from 11/06 - 11/07 after an acute episode of word finding difficulty. You reported that this episode lasted for approximately 10 to 15 minutes, then resolved on its own. The initial imaging of your head and neck revealed no acute intracranial findings (i.e. no stroke). However your clinical picture is concerning for something called a transient ischemic attack (or "mini stroke"). These events do not lead to any permanent damage or loss of brain function; however, it is very important to prevent events like this from recurring. We are planning to discharge you on dual antiplatelet therapy: - Take aspirin 81 mg daily x 21 days - Take Plavix 75 mg daily x 21 days After completing this 3-week course, it is likely that you will need to remain on antiplatelet monotherapy to prevent an event like this from recurring. Please plan to follow-up with your PCP in the next 1 to 2 weeks for transitional care. We are also planning to send you home on a new prescription for potassium supplements 10 mEq daily. Prior to your PCP appointment, please plan to have blood work drawn to assess your potassium level (the lab test is called a "BMP"). Your potassium level was somewhat low when you arrived in the hospital, but is back within normal limits at time of discharge. It is possible that one of the medications you take daily, called hydrochlorothiazide, could be gradually decreasing your potassium levels. It is okay to resume this med ication upon discharge, but we would want to closely monitor your potassium levels moving forward. If you develop any new or worsening symptoms, such as slurred speech, facial droop, unilateral deficits, fainting spells, dizziness, chest pain, difficulty walking, or difficulty breathing, please return to the emergency department immediately. It was a pleasure taking care of you. Please reach out with any questions or concerns. Sincerely, The Hospital medicine team at [facility] Supervising Physician Co-Signing Physician Notes The patient was not seen by me. The chart was reviewed. Case discussed with KIRT Long. Agree with assessment and plan Total Time Total Time Spent Total Time Spent (In Minutes): 25 Coding [place] [address] IN/OBS DISCH 30 MIN/LESS Patient Type Established Medical Decision Making Moderate Complexity Diagnoses Brain TIA G45.9 Hypertension I10 Hyperlipidemia E78.5
--- NOTE | 2024-11-07 10:25 | Pharmacy Report ---
- Date of Service November 07, 2024 - Pharmacy CVA/TIA Medication Review Medications to Prevent Stroke handout has been added to the patients discharge packet. Antiplatelet(s) * aspirin 81mg po daily + plavix 75mg po daily Cholesterol * High intensity statin: simvastatin 40mg po daily DVT Prophylaxis * SCD knee Therapeutic Anticoagulation * No history of Afib/Aflutter noted Type 2 Diabetes * Patient does not have T2DM
[2024-11-07 11:05] VITALS: PULSE 69; TEMP 98.1; O2SAT 96
--- NOTE | 2024-11-07 11:11 | Electrocardiogram Report ---
Test Reason : Blood Pressure : */* mmHG Vent. Rate : 76 BPM Atrial Rate : 76 BPM P-R Int : 152 ms QRS Dur : 96 ms QT Int : 410 ms P-R-T Axes : 76 32 74 degrees QTcB Int : 461 ms Normal sinus rhythm Nonspecific ST abnormality Abnormal ECG When compared with ECG of 13-Sep-2003 10:17, No significant change Confirmed by Cristino Mayen ([id number]) on 11/07/2024 11:10:35 AM Referred By: REFERRED SELF Confirmed By: Cristino Mayen
[2024-11-07 11:16] VITALS: BP 148/85
--- NOTE | 2024-11-07 12:09 | XCELERA ---
[id number]
[2024-11-07] MEDS: STROKE PATIENT DISCHARGE STA (12:44)
--- NOTE | 2024-11-08 09:44 | Pharmacy Report ---
Pharmacist Stroke Counseling - Date of Service November 08, 2024 - Scope: Pharmacy has been consulted to provide medication discharge counseling for this patient admitted with [ischemic stroke] [hemorrhagic stroke] [transient ischemic attack] as per the Pharmacist Discharge Counseling for Stroke Patients Maryam cruz - Medications on Discharge: Home Medications Medication Instructions Recorded Confirmed hydrochlorothiazide 25 mg tablet 25 mg PO QAM 06/30/19 11/06/24 simvastatin 20 mg tablet 20 mg PO HS 06/30/19 11/06/24 amlodipine 5 mg tablet 5 mg PO QAM 11/06/24 11/06/24 New Rx's Medication Instructions Recorded aspirin 81 mg tablet,delayed 81 mg PO DAILY #21 tabs 11/07/24 release clopidogrel 75 mg tablet (Plavix) 75 mg PO DAILY #21 tabs 11/07/24 potassium chloride 10 mEq 10 meq PO DAILY #30 caps 11/07/24 capsule,extended release - Action: The above medications, specifically ones for stroke treatment/prophylaxis, have been reviewed in detail with the patient and/or patient high school admissions representative(s) prior to discharge. This includes indication, common adverse reactions, drug interactions, and medication administration. Medication counseling has been employed using the teach-back method to ensure understanding. - Outcome: The patient and/or patient high school admissions representative(s) have demonstrated understanding of the medications. Additional comments: Spoke with patient over the phone to review new medications at discharge. Patient was able to pickle solution maker these medications, reports no issues/concerns. No pertinent positives on interview. Thank you for allowing pharmacy to be involved in the care of this patient. Please call [phone] with any additional questions
== END 2024-11-07 13:08 | disposition home or self-care (01) ==
LOC: ED 17:14 → 2N 17:14 → SUATTDRO 20:07 → 2N 21:07